=== PATIENT | female | born 1960 | race Asian ===

== ENCOUNTER 2016-10-08 10:16 | Outpatient (CLI) | payer BC | END 2016-10-08 18:32 | disposition home or self-care (01) | LOC: SMA 10:16 | PROVIDERS: ATTEND Specialist | DX: Z12.31 Encounter for screening mammogram for malignant neoplasm of breast (principal) | CPT/HCPCS: G0202 ==

== ENCOUNTER 2017-11-28 09:49 | Outpatient (CLI) | payer BC | END 2017-11-28 19:08 | disposition home or self-care (01) | LOC: SMA 09:49 | PROVIDERS: ATTEND Specialist | DX: Z12.31 Encounter for screening mammogram for malignant neoplasm of breast (principal) | CPT/HCPCS: 77067 ==

== ENCOUNTER 2018-12-01 09:12 | Outpatient (CLI) | payer BC | END 2018-12-01 21:15 | disposition home or self-care (01) | LOC: SMA 09:12 | PROVIDERS: ATTEND Specialist | DX: Z12.31 Encounter for screening mammogram for malignant neoplasm of breast (principal) | CPT/HCPCS: 77067 ==

== ENCOUNTER 2019-12-08 07:54 | Outpatient (CLI) | payer BC | END 2019-12-08 19:24 | disposition home or self-care (01) | LOC: SMA 07:54 | PROVIDERS: ATTEND Specialist | DX: Z12.31 Encounter for screening mammogram for malignant neoplasm of breast (principal) | CPT/HCPCS: 77067 ==

== ENCOUNTER 2021-01-16 08:32 | Outpatient (CLI) | payer BC | END 2021-01-16 19:56 | disposition home or self-care (01) | LOC: SMA 08:32 | PROVIDERS: ATTEND Specialist | DX: Z12.31 Encounter for screening mammogram for malignant neoplasm of breast (principal) | CPT/HCPCS: 77067 ==

== ENCOUNTER 2022-04-04 10:27 | Outpatient (CLI) | payer BC | END 2022-04-04 20:34 | disposition home or self-care (01) | LOC: SMA 10:27 | DX: Z12.31 Encounter for screening mammogram for malignant neoplasm of breast (principal) | CPT/HCPCS: 77067 ==

== ENCOUNTER 2023-04-11 10:15 | Outpatient (CLI) | payer BC | END 2023-04-11 18:02 | disposition home or self-care (01) | LOC: SMA 10:15 | PROVIDERS: ATTEND Specialist | DX: Z12.31 Encounter for screening mammogram for malignant neoplasm of breast (principal) | CPT/HCPCS: 77067 ==